=== PATIENT | female | born 1950 | race American Indian/Alaskan Native ===

== ENCOUNTER 2018-04-30 07:00 | Inpatient (IN) | payer MEDICARE ==
[2018-04-26 09:49] LABS: Basophils # (Auto) 0.1 K/mm3 (0.0-0.1); Basophils % (Auto) 1.6 % (0.0-1.8); Eosinophils # (Auto) 0.1 K/mm3 (0.0-0.4); Eosinophils % (Auto) 1.5 % (0.0-4.3); Lymphocytes # (Auto) 1.5 K/mm3 (1.2-5.4); Lymphocytes % (Auto) 19.7 % (13.4-35.0); Mean Corpuscular HGB Conc 29 % (30-34); Mean Corpuscular Volume 75 fl (79-97); Monocytes # (Auto) 0.7 K/mm3 (0.0-0.8); Monocytes % (Auto) 9.1 % (0.0-7.3); Platelet Count 569 K/mm3 (140-440); Red Blood Count 3.15 M/mm3 (3.65-5.03); Red Cell Distribution Width 18.3 % (13.2-15.2)
[2018-04-26 09:50] LABS: Hematocrit 23.7 % (30.3-42.9); Hemoglobin 6.9 gm/dl (10.1-14.3)
--- NOTE | 2018-04-26 20:55 | Anesthesia Consultation ---
Anesthesia Consult and Med Hx Date of service: 04/26/18 - Airway Anesthetic Teeth Evaluation: Good ROM Head & Neck: Adequate Mental/Hyoid Distance: Adequate Mallampati Class: Class III Intubation Access Assessment: Possibly Difficult - Pulmonary Exam CTA: Yes - Cardiac Exam Cardiac Exam: RRR - Pre-Operative Health Status ASA Pre-Surgery Classification: ASA2 Proposed Anesthetic Plan: General Nerve Block: TAP - Pulmonary Hx Smoking: No Hx Asthma: Yes (childhood) Hx Respiratory Symptoms: No (no recent cough or flu-like symptoms) Hx Sleep Apnea: No - Cardiovascular System Hx Hypertension: No (states BP elevated recently 2/2 pain; no formal HTN diagnosis) Hx Heart Attack/AMI: No - Central Nervous System Hx Seizures: No CVA: No Hx Psychiatric Problems: No - Gastrointestinal Hx Gastroesophageal Reflux Disease: No - Endocrine Hx Renal Disease: No Hx Liver Disease: No Hx Insulin Dependent Diabetes: No Hx Non-Insulin Dependent Diabetes: No Hx Thyroid Disease: No - Hematic Hx Anemia: Yes - Additional Comments Anesthesia Medical History Comments: Hx PONV with previous anesthetic. Consented for preop TAP block for postoperative analgesia.
[~2018-04-30 07:00] MED LIST: NACL 0.9% 1000 ML 1,000 ML IV SCH; NACL 0.9% 500 ML 500 ML IV SCH; NEURONTIN PO NR; SUBLIMAZE IV PRN; TRANSDERM-SCOP TD NR; VERSED IV NR
[2018-04-30] MEDS ORDERED: DECADRON ONE (09:26)
[2018-04-30] MEDS ORDERED: MARCAINE 0.25% INFILTRATI ONE (09:26)
--- NOTE | 2018-04-30 09:39 | History and Physical Report ---
History of Present Illness Date of examination: 04/30/18 Date of admission: 04/30/18 09:09 Chief complaint: Uterine fibroids History of present illness: Pt is a 67-year-old black female LMP approximately 15 years ago presented to the office complaining of vaginal bleeding. Pelvic ultrasound showed multiple uterine fibroids and endometrial biopsy was benign. She now presents for a total abdominal hysterectomy with bilateral salpingo-oophorectomy for postmenopausal bleeding and symptomatic uterine fibroids. 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 Social history: no significant social history, single Medications and Allergies Allergies Allergy/AdvReac Type Severity Reaction Status Date / Time Penicillins Allergy Swelling Verified 04/25/18 15:24 Home Medications Medication Instructions Recorded Confirmed Last Taken Type No Known Home Medications [No 04/25/18 04/25/18 Unknown History Reported Home Medications] Active Meds: Active Medications Celecoxib (Celebrex) 200 mg PO PREOP NR Stop: 04/30/18 23:59 Fentanyl (Sublimaze) 100 mcg IV ONCE PRN PRN Reason: procedural sedation Stop: 04/30/18 23:59 Gabapentin (Neurontin) 300 mg PO PREOP NR Stop: 04/30/18 23:59 Sodium Chloride (Nacl 0.9% 500 Ml) 500 mls @ 0 mls/hr IV DIRECT JAMES Stop: 04/30/18 23:59 Sodium Chloride (Nacl 0.9% 1000 Ml) 1,000 mls @ 100 mls/hr IV DIRECT JAMES Midazolam HCl (Versed) 2 mg IV PREOP NR Stop: 04/30/18 23:59 Scopolamine (Transderm-Scop) 1 each TD PREOP NR Stop: 05/03/18 05:59 Review of Systems All systems: negative - Vital Signs Vital signs: Vital Signs Temp Pulse Resp BP Pulse Ox 98.2 F 105 H 20 153/86 100 04/26/18 09:00 04/26/18 09:00 04/26/18 09:00 04/26/18 09:00 04/26/18 09:00 Temp Pulse Resp BP Pulse Ox 98.2 F 105 H 20 153/86 100 04/26/18 09:00 04/26/18 09:00 04/26/18 09:00 04/26/18 09:00 04/26/18 09:00 - Physical Exam Breasts: Positive: deferred Cardiovascular: Regular rate Lungs: Positive: Clear to auscultation Abdomen: Positive: normal appearance Genitourinary (Female): Positive: normal external genitalia Vagina: Positive: normal moisture Cervix: Negative: lesion Uterus: Positive: enlarged Anus/Rectum: Positive: normal perianal skin Extremities: Positive: normal Results Result Diagrams: 04/26/18 Unknown All other labs normal. Ultrasound: report reviewed Assessment and Plan - Patient Problems (1) Uterine fibroid Onset Date: 04/30/18 Current Visit: Yes Status: Acute Qualifiers: Uterine leiomyoma location: intramural, submucous, and subserous Qualified Code(s): D25.1 - Intramural leiomyoma of uterus; D25.0 - Submucous leiomyoma of uterus; D25.2 - Subserosal leiomyoma of uterus Plan to address problem: A: Symptomatic uterine fibroids Postmenopausal bleeding Chronic anemia P: Will admit for a Total Abdominal Hysterectomy with Bilateral Salpingo- Oophorectomy Will transfuse 2 units packed red blood cells prior to surgery (2) PMB (postmenopausal bleeding) Onset Date: 04/30/18 Current Visit: Yes Status: Acute (3) Chronic blood loss anemia Onset Date: 04/30/18 Current Visit: Yes Status: Chronic
[2018-04-30] MEDS ORDERED: GENTAMICIN 80 MG in NACL 0.9% 100 ML IV SCH (09:45)
[2018-04-30] MEDS ORDERED: GENTAMICIN/NS 80 MG/100 ML 100 ML IV ONE (10:06)
--- NOTE | 2018-04-30 10:50 | Anesthesia Day of Surgery ---
Anesthesia Day of Surgery - Day of Surgery Patient Examined: Yes Patient H&P Reviewed: Yes Patient is NPO: Yes
[2018-04-30] MEDS ORDERED: CLEOCIN 600 MG/50 mL 600 MG/50 ML BAG IV SCH (12:00)
[2018-04-30] MEDS ORDERED: GENTAMICIN/NS 80 MG/100 ML 100 ML IV SCH (12:00)
[2018-04-30] MEDS ORDERED: DIPRIVAN 10 MG/ML IV ONE (12:31)
[2018-04-30] MEDS ORDERED: XYLOCAINE MPF 2% ONE (12:31)
[2018-04-30] MEDS ORDERED: DILAUDID ONE (12:31)
[2018-04-30] MEDS ORDERED: ZEMURON IV ONE (12:34)
[2018-04-30] MEDS ORDERED: ROBINUL ONE (14:42)
[2018-04-30] MEDS ORDERED: BLOXIVERZ ONE (14:42)
[2018-04-30] MEDS ORDERED: ZOFRAN ONE (14:47)
[2018-04-30] MEDS ORDERED: NACL 0.9% 1000 ML 1,000 ML ONE (14:47)
[2018-04-30] MEDS ORDERED: TORADOL ONE (14:47)
[2018-04-30] MEDS ORDERED: TYLENOL PO PRN (14:59)
[2018-04-30] MEDS ORDERED: MILK OF MAGNESIA PO PRN (14:59)
[2018-04-30] MEDS ORDERED: PERCOCET 5/325 PO PRN (14:59)
[2018-04-30] MEDS ORDERED: ZOFRAN IV PRN (14:59)
[2018-04-30] MEDS ORDERED: BENADRYL IV PRN (14:59)
[2018-04-30] MEDS ORDERED: NORCO 5/325 PO PRN (14:59)
--- NOTE | 2018-04-30 15:13 | Operative Report ---
Operative Report Operative Report: Date of procedure: 04/30/2018 Pre-operative diagnosis: 1. Symptomatic uterine fibroids 2. Postmenopausal b leeding Post-operative diagnosis: Same Procedure name(s): 1. Total Abdominal Hysterectomy 2. Bilateral salpingo- oophorectomy Surgeon: Martinez Ayoub MD Blocking Machine Operator: Annika Kent CSA Anesthesia: [id number] Block followed by general endotracheal intubation by Dr. Collins EBL: 150 mls Findings: A 20 week size multiple myomatous uterus with a large 8 cm pedunculated myoma, normal tubes bilaterally and atrophic ovaries bilaterally. Procedure: After the patient was first correctly identified and after general anesthesia was administered she was prepped and draped in usual in the usual sterile fashion and placed in the dorsolithotomy position. The skin knife was used to make a transverse skin incision. The incision was extended down to the layer of the fascia which was nicked in the midline and extended laterally using Bovie cautery. The rectus muscles were dissected off the rectus fascia both superiorly and inferiorly, the rectus bellies in the midline and the peritoneum was entered under direct visualization. Exploration of the pelvic organs found the uterus to be enlarged about 20 week size and the tubes were normal bilaterally, and the ovaries atrophic bilaterally. Next the bowels were packed back and the right round ligament was clamped, cauterized and cut using the Enseal device. The right infundibulopelvic ligament was clamped, cauterized and cut using the Enseal device, thus freeing the right ovary from the right pelvic sidewall. The same procedure was performed on the left. The left round ligament was clamped, cauterized and cut using the Enseal device, and the left infundibulopelvic ligament was clamped, cauterized and cut thus freeing the left ovary from the left pelvic sidewall. The uterine vessels were then skeletonized bilaterally, and the bladder flap was taken down anteriorly. The uterine vessels were then doubly clamped cut and suture ligated bilaterally, and the cardinal ligaments were sequentially clamped cut and suture ligated down to the level of the uterosacral ligaments. The cervix was then amputated from the vaginal cuff and the specimen was handed off the surgical field. The vaginal cuff was then made hemostatic using several sutures of 0 Vicryl suture in a [id number] configuration. After excellent hemostasis was assured copious amounts of irrigation was then performed. The Tisseel sealant was then sprayed across the vaginal cuff and the superior pedicles bilaterally and after excellent hemostasis was assured the procedure was considered complete. All instruments removed from abdomen, and the peritoneum was closed using 0 Vicryl suture in a running interlocking fashion and the rectus muscles were also loosely re-approximated using 0 Vicryl suture in a [id number] configuration. The fascia was then re-approximated using #1 Vicryl suture in a running interlocking fashion, the subcutaneous layer made hemostatic using Bovie cautery and the skin edges re-approximated using 4-0 Vicryl suture in a sub- cuticular fashion. Patient tolerated the procedure well was transported to recovery room in stable condition.
[2018-04-30] MEDS ORDERED: NORMODYNE IV ONE (15:54)
[2018-04-30] MEDS ORDERED: NORMODYNE IV PRN (15:59)
[2018-04-30] MEDS ORDERED: D5LR 1,000 ML IV SCH (16:00)
--- NOTE | 2018-04-30 16:00 | Post Anesthesia Evaluation ---
- Post Anesthesia Evaluation Patient Participated: Yes Airway Patent: Yes Stable Respiratory Function: Yes Nausea/Vomiting: No Temp > 96.8F: Yes Pain Manageable: Yes Adequeate Hydration: Yes Anesthesia Complications: No Other Comments: Elevated post-op BP treated with IV antihypertensives.
[2018-04-30] MEDS: DILAUDID IV PRN ×2 (16:03→16:57)
[2018-04-30] MEDS: TORADOL IV SCH (18:04)
[2018-04-30] MEDS: CLEOCIN 600 MG/50 mL 600 MG/50 ML BAG IV SCH (18:18)
[2018-04-30] MEDS: GENTAMICIN/NS 80 MG/100 ML 100 ML IV SCH (18:20)
[2018-04-30] MEDS: COLACE PO SCH (21:57)
[2018-05-01] MEDS: TORADOL IV SCH ×4 (00:45→23:07)
[2018-05-01] MEDS: CLEOCIN 600 MG/50 mL 600 MG/50 ML BAG IV SCH (01:54)
[2018-05-01] MEDS: GENTAMICIN/NS 80 MG/100 ML 100 ML IV SCH (02:43)
[2018-05-01 04:36] LABS: Hemoglobin 8.2 gm/dl (10.1-14.3)
--- NOTE | 2018-05-01 08:38 | Progress Note ---
Assessment and Plan - Patient Problems (1) Uterine fibroid Onset Date: 04/30/18 Current Visit: Yes Status: Resolved Qualifiers: Uterine leiomyoma location: intramural, submucous, and subserous Qualified Code(s): D25.1 - Intramural leiomyoma of uterus; D25.0 - Submucous leiomyoma of uterus; D25.2 - Subserosal leiomyoma of uterus (2) PMB (postmenopausal bleeding) Onset Date: 04/30/18 Current Visit: Yes Status: Resolved (3) Chronic blood loss anemia Onset Date: 04/30/18 Current Visit: Yes Status: Chronic (4) S/P HERNANDO-BSO (total abdominal hysterectomy and bilateral salpingo-oophorecto my) Onset Date: 05/01/18 Current Visit: Yes Status: Resolved Plan to address problem: A: S/P HERNANDO/BSO - POD #1 Doing well Asymptomatic anemia - stable P: Continue RPOC Anticipate discharge in 24-48hrs Subjective - Subjective Date of service: 05/01/18 Principal diagnosis: S/P HERNANDO/BSO - POD #1 Interval history: Pt is feeling well s/p a total abdominal hysterectomy with bilateral salpingo- oophorectomy. She is tolerating a liquid diet without nausea or vomiting, ambulating and voiding without difficulty. Patient reports: appetite normal, voiding normally, pain well controlled, ambulating normally, no dizzy ambulation, no flatus, no nauseated Objective - Vital Signs Latest vital signs: Vital Signs Temp Pulse Pulse Resp BP BP Pulse Ox 05/01/18 07:08 98.4 F 68 18 152/69 05/01/18 04:00 98.6 F 91 H 18 158/83 100 05/01/18 00:00 98.9 F 69 22 153/66 99 04/30/18 20:00 98.2 F 71 20 126/80 97 04/30/18 17:20 97.5 F L 86 86 18 143/67 100 04/30/18 16:45 63 10 L 148/84 100 04/30/18 16:15 75 11 L 167/91 100 04/30/18 16:00 75 13 176/98 100 04/30/18 15:45 98 H 18 179/99 100 04/30/18 15:30 97 H 18 154/91 100 04/30/18 15:25 98 H 18 153/91 100 04/30/18 15:20 100 H 17 149/83 100 04/30/18 15:14 97.1 F L 100 H 16 144/78 100 04/30/18 12:22 99.1 F 88 16 146/80 100 04/30/18 12:17 100.0 F H 98 H 16 144/80 100 04/30/18 12:12 97 H 18 159/87 100 04/30/18 12:07 100.0 F H 98 H 18 154/89 100 04/30/18 11:40 98.0 F 85 16 150/85 04/30/18 10:31 18 04/30/18 09:50 98.9 F 107 H 18 150/93 100 Intake and Output 04/30/18 05/01/18 05/01/18 22:59 06:59 14:59 Intake Total 750 120 480 Output Total 600 Balance 750 -480 480 Intake: IV 750 CLEOCIN 600 MG/50 mL 600 50 mg In 50 ml @ 100 mls/hr IV Q8H JAMES Rx#:[id number] Garamycin/Ns 80 mg/100 ml 100 100 ml @ 200 mls/hr IV Q8H JAMES Rx#:[id number] Oral 120 480 Output: Urine 600 Void 600 Other: Total, Intake Amount 120 480 Total, Output Amount 600 Voiding Method Indwelling Catheter - Exam Cardiovascular: Present: Regular rate Lungs: Present: Clear to auscultation Abdomen: Present: normal appearance, soft Extremities: Present: normal Incision: Present: normal, dry, intact - Labs Labs: Abnormal lab results 04/30/18 05/01/18 Range/Units 09:40 04:15 Hgb 8.2 L (10.1-14.3) gm/dl Hct 26.0 L (30.3-42.9) % Crossmatch See Detail Laboratory Tests 04/26/18 04/30/18 05/01/18 Unknown 09:40 04:15 WBC 7.5 RBC 3.15 L Hgb 6.9 L 8.2 L Hct 23.7 L 26.0 L MCV 75 L MCH 22 L MCHC 29 L RDW 18.3 H Plt Count 569 H Lymph % (Auto) 19.7 [place] % (Auto) 9.1 H Eos % (Auto) 1.5 Baso % (Auto) 1.6 Lymph # 1.5 [place] # 0.7 Eos # 0.1 Baso # 0.1 Seg Neutrophils % 68.1 Seg Neutrophils # 5.1 Blood Type O POSITIVE Antibody Screen Negative Crossmatch See Detail
[2018-05-01] MEDS: COLACE PO SCH ×2 (10:55→22:49)
[2018-05-02] MEDS: TORADOL IV SCH ×2 (04:56→06:57)
[2018-05-02 08:54] VITALS: BP 141/59
--- NOTE | 2018-05-02 09:24 | Progress Note ---
Assessment and Plan - Patient Problems (1) Uterine fibroid Onset Date: 04/30/18 Current Visit: Yes Status: Resolved Qualifiers: Uterine leiomyoma location: intramural, submucous, and subserous Qualified Code(s): D25.1 - Intramural leiomyoma of uterus; D25.0 - Submucous leiomyoma of uterus; D25.2 - Subserosal leiomyoma of uterus (2) PMB (postmenopausal bleeding) Onset Date: 04/30/18 Current Visit: Yes Status: Resolved (3) Chronic blood loss anemia Onset Date: 04/30/18 Current Visit: Yes Status: Chronic (4) S/P HERNANDO-BSO (total abdominal hysterectomy and bilateral salpingo-oophorecto my) Onset Date: 05/01/18 Current Visit: Yes Status: Resolved Plan to address problem: A: S/P HERNANDO/BSO - POD #2 Doing well Asymptomatic anemia - stable P: May go home today. Subjective - Subjective Date of service: 05/02/18 Principal diagnosis: S/P HERNANDO/BSO - POD #2 Interval history: Pt is feeling well without complaints s/p a total abdominal hysterectomy with bi lateral salpingo-oophorectomy. She is tolerating a reg diet without nausea and vomiting, ambulating and voiding without difficulty. Patient reports: appetite normal, voiding normally, pain well controlled, flatus, ambulating normally, no dizzy ambulation, no nauseated Objective - Vital Signs Latest vital signs: Vital Signs Temp Pulse Pulse Resp BP BP Pulse Ox 05/02/18 08:26 98.3 F 68 18 141/59 05/02/18 07:27 20 05/02/18 06:57 20 05/02/18 04:41 99.1 F 68 18 147/64 97 05/02/18 01:01 99.3 F 95 H 18 151/68 95 05/01/18 23:07 22 05/01/18 21:02 99.4 F 99 H 18 147/81 98 05/01/18 20:30 100 H 20 05/01/18 16:12 98.5 F 75 18 149/84 05/01/18 12:26 98.6 F 80 18 156/60 Intake and Output 05/01/18 05/02/18 05/02/18 22:59 06:59 14:59 Intake Total 600 240 480 Balance 600 240 480 Intake: Oral 360 480 Intake, Free Water 240 240 Other: Total, Intake Amount 360 480 Voiding Method Toilet Toilet # Voids Void 2 1 - Exam Abdomen: Present: normal appearance, soft Extremities: Present: normal Incision: Present: normal, dry, intact
--- NOTE | 2018-05-02 09:36 | Discharge Summary ---
Providers - Providers Date of Admission: 04/30/18 09:09 Date of discharge: 05/02/18 Attending physician: CHUCK BENTON Primary care physician: CHIP [employer]IN CONVEYOR TENDER Hospitalization Reason for admission: other (Symptomatic uterine fibroids; Postmenopausal bleeding) Procedure: other (Total Abdominal Hysterectomy with Bilateral SalpingoOophorectomy) Episiotomy: none Laceration: none Incision: normal, dry, intact Other procedures: none complications: none Discharge diagnosis: other (s/p HERNANDO/BSO) Hospital course: Pt is a 67-year-old black female LMP approximately 15 years ago who presented to the office complaining of vaginal bleeding. Pelvic ultrasound showed multiple uterine fibroids and endometrial biopsy was benign. She underwent an uncomplicated total abdominal hysterectomy with bilateral salpingo- oophorectomy and tolerated the procedure well. By POD #2 she was tolerating a reg diet without nausea or vomiting, ambulating and voiding without difficulty. She will therefore be discharged to home today in stable condition. Condition at discharge: Good Disposition: DC-01 TO HOME OR SELFCARE - Discharge Diagnoses (1) Uterine fibroid Status: Resolved Qualifiers: Uterine leiomyoma location: intramural, submucous, and subserous Qualified Code(s): D25.1 - Intramural leiomyoma of uterus; D25.0 - Submucous leiomyoma of uterus; D25.2 - Subserosal leiomyoma of uterus (2) PMB (postmenopausal bleeding) Status: Resolved (3) Chronic blood loss anemia Status: Chronic (4) S/P HERNANDO-BSO (total abdominal hysterectomy and bilateral salpingo- oophorectomy) Status: Resolved Plan - Discharge Medications Prescriptions: Ferrous Sulfate [Feosol 325 MG tab] 325 mg PO BID #60 tablet HYDROcodone/APAP 5-325 [[place] 5-325 mg TAB] 1 each PO Q6HR PRN #30 tablet PRN Reason: Pain, Moderate (4-6) Ibuprofen [Motrin] 800 mg PO Q8HR PRN #30 tablet PRN Reason: Pain, Mild (1-3) - Provider Discharge Summary Activity: routine, no sex for 6 weeks, no heavy lifting 4 weeks, no strenuous ex ercise Diet: routine Instructions: routine Additional instructions: [] Smoking cessation referral if applicable(refer to patient education folder for contact #) [] Refer to [facility] Booklet Call your doctor immediately for: * Fever > 100.5 * Heavy vaginal bleeding ( >1 pad per hour) * Severe persistent headache * Shortness of breath * Reddened, hot, painful area to leg or breast * Drainage or odor from incision. * Keep incision clean and dry at all times and follow doctor's instructions regarding bathing/showering - Follow up plan Follow up: PRIMARY CARE, [Primary Care Provider] - 7 Days CHUCK BENTON MD [Staff Physician] - 14 Days
== END 2018-05-02 11:45 | disposition home or self-care (01) | DRG 743 ==
LOC: 3A 09:09 → OB 15:47
PROVIDERS: ADMIT Obstetrics & Gynecology; ATTEND Obstetrics & Gynecology
PROC: 0UT90ZZ Resection of Uterus, Open Approach (ICD-10-PCS; principal; 2018-04-30)
PROC: 0UT20ZZ Resection of Bilateral Ovaries, Open Approach (ICD-10-PCS; 2018-04-30)
PROC: 0UT70ZZ Resection of Bilateral Fallopian Tubes, Open Approach (ICD-10-PCS; 2018-04-30)
PROC: 30233N1 Transfusion of Nonautologous Red Blood Cells into Peripheral Vein, Percutaneous Approach (ICD-10-PCS; 2018-04-30)
DX: D25.0 Submucous leiomyoma of uterus (principal); D50.0 Iron deficiency anemia secondary to blood loss (chronic); J45.909 Unspecified asthma, uncomplicated; N95.0 Postmenopausal bleeding; Z88.0 Allergy status to penicillin; D25.1 Intramural leiomyoma of uterus; D25.2 Subserosal leiomyoma of uterus
CPT/HCPCS: 36415; 36430; 64450; 85014; 85018; 85025; 86850; 86900; 86901; 86920; 88307; 88309; 88341; 88342; G0378; C9250; J1100; J1170; J1580; J1885; J2250; J2405; J2704; J2710; J3010; J7030; J7040; J7121; P9016